=== PATIENT | male | born 1970 | race Caucasian/White ===

== ENCOUNTER 2021-12-13 08:37 | Emergency (ER) | payer BC | END 2021-12-13 11:56 | disposition home or self-care (01) | LOC: MW.ED 08:37 | DX: K64.9 Unspecified hemorrhoids (principal); R33.9 Retention of urine, unspecified; Z46.6 Encounter for fitting and adjustment of urinary device; Z88.0 Allergy status to penicillin; Z90.49 Acquired absence of other specified parts of digestive tract | CPT/HCPCS: 51702; 81001; 99283; 99284-25 ==